=== PATIENT | male | born 1955 | race Caucasian/White ===

== ENCOUNTER 2017-08-30 20:09 | Emergency (ER) | payer OTHER ==
--- NOTE | 2017-08-30 20:43 | EDPHY ---
H & P Time Seen by Provider: 08/30/17 20:42 HPI/ROS: Chief complaint. Diarrhea HPI. Patient was seen by and not by me Smoking Status: Never smoked Constitutional: Initial Vital Signs Temperature (C) 37.1 C 08/30/17 20:15 Heart Rate 80 08/30/17 20:15 Respiratory Rate 18 08/30/17 20:15 Blood Pressure 135/97 H 08/30/17 20:15 O2 Sat (%) 80 L 08/30/17 20:15 O2 Delivery Mode Room Air Allergies/Adverse Reactions: No Known Allergies Allergy (Verified 08/30/17 20:14) Home Medications: Medication Instructions Recorded [facility] Carbonate 06/07/09 Zoloft 06/07/09 Requip 08/30/17 Seroquel 08/30/17 Wellbutrin 100mg (*) 08/30/17 Medical Decision Making - Data Points Laboratory Results: Laboratory Results 08/30/17 20:25 08/30/17 20:25 08/30/17 08/30/17 20:25 20:25 WBC 6.35 10^3/uL 10^3/uL (3.80-9.50) RBC 5.37 10^6/uL 10^6/uL (4.40-6.38) Hgb 16.7 g/dL g/dL (13.7-17.5) Hct 48.1 % % (40.0-51.0) MCV 89.6 fL fL (81.5-99.8) MCH 31.1 pg pg (27.9-34.1) MCHC 34.7 g/dL g/dL (32.4-36.7) RDW 12.6 % % (11.5-15.2) Plt Count 204 10^3/uL 10^3/uL (150-400) MPV 9.1 fL fL (8.7-11.7) Neut % (Auto) 77.2 % H % (39.3-74.2) Lymph % (Auto) 12.1 % L % (15.0-45.0) [place] % (Auto) 8.3 % % (4.5-13.0) Eos % (Auto) 1.1 % % (0.6-7.6) Baso % (Auto) 0.8 % % (0.3-1.7) Nucleat RBC Rel Count 0.0 % % (0.0-0.2) Absolute Neuts (auto) 4.90 10^3/uL 10^3/uL (1.70-6.50) Absolute Lymphs (auto) 0.77 10^3/uL L 10^3/uL (1.00-3.00) Absolute Monos (auto) 0.53 10^3/uL 10^3/uL (0.30-0.80) Absolute Eos (auto) 0.07 10^3/uL 10^3/uL (0.03-0.40) Absolute Basos (auto) 0.05 10^3/uL 10^3/uL (0.02-0.10) Absolute Nucleated RBC 0.00 10^3/uL 10^3/uL (0-0.01) Immature Gran % 0.5 % % (0.0-1.1) Immature Gran # 0.03 10^3/uL 10^3/uL (0.00-0.10) Sodium 138 mEq/L mEq/L (135-145) Potassium 3.8 mEq/L mEq/L (3.5-5.2) Chloride 104 mEq/L mEq/L (97-110) Carbon Dioxide 26 mEq/l mEq/l (22-31) Anion Gap 8 mEq/L mEq/L (8-16) BUN 11 mg/dL mg/dL (7-23) Creatinine 1.1 mg/dL mg/dL (0.7-1.3) Estimated GFR > 60 Glucose 93 mg/dL mg/dL (70-100) Calcium 9.4 mg/dL mg/dL (8.5-10.4) [place] < 0.2 mEq/L L mEq/L (0.6-1.2) Departure - Departure Condition: Good Referrals: Rony Alexander MD [Primary Care Provider] - As per Instructions
[2017-08-30] MEDS ORDERED: NS 1,000 ML IV ONE ×2 (20:45→21:17)
[2017-08-30 20:55] LABS: PLATELET COUNT 204 10^3/uL (150-400)
--- NOTE | 2017-08-30 21:06 | EDPHY ---
H & P Time Seen by Provider: 08/30/17 20:42 HPI/ROS: CHIEF COMPLAINT: Diarrhea and weakness HISTORY OF PRESENT ILLNESS: Still patient presents with symptoms since early this morning. He was in [place] visiting his 's family when he started having diarrhea early this morning. Multiple episodes not associated with melena or red blood per rectum. Symptoms severe and associated with weakness and a fever to 101 degrees F at 7:30 p.m. Tonight with chills. Decreased oral intake as he is worried that the more he takes in his stomach the more diarrhea he is going to have. REVIEW OF SYSTEMS: Eye: Some visual symptoms with extra"colors" ENT: no sore throat Cardiac: no chest pain or syncope Pulmonary: no cough or SOB Abdomen: HPI Musculoskeletal: Diffuse muscle aches Skin: no rash Neuro: no headache Constitutional: Subjective fever : no urinary symptoms A comprehensive 10 point review of systems is otherwise negative aside from elements mentioned in the history of present illness. PAST MEDICAL HISTORY: Includes mood disorder on lithium Requip Seroquel and Wellbutrin. Social history: No foreign travel, nonsmoker General Appearance: Alert and conversant, cooperative. Eyes: No scleral icterus. Pupils equal and reactive and extraocular motion intact. ENT, Mouth: Dry mucous membranes Respiratory: Normal respiratory effort, breath sounds equal, lungs are clear to auscultation. Cardiovascular: Regular rate and rhythm. Gastrointestinal: Abdomen is soft and non tender. No rebound or guarding. Neurological: Alert, face symmetric, normal motor and sensory in extremities. Skin: Warm and dry, no rashes. Musculoskeletal: No peripheral edema. Neck supple, no meningeal signs. Psychiatric: Not agitated. Emergency Department course/MDM: Family was specifically concerned about meningitis but I think that acute gastrointestinal infection is much more likely. The patient thinks he had food poisoning which I think is also quite possible. Normal saline 2 L IV, Imodium 4 mg orally. Check labs including lithium and chemistries. [id number]: feels well wants to go home. Smoking Status: Never smoked Constitutional: Initial Vital Signs Temperature (C) 37.1 C 08/30/17 20:15 Heart Rate 80 08/30/17 20:15 Respiratory Rate 18 08/30/17 20:15 Blood Pressure 135/97 H 08/30/17 20:15 O2 Sat (%) 95 08/30/17 20:15 O2 Delivery Mode Room Air Allergies/Adverse Reactions: No Known Allergies Allergy (Verified 08/30/17 20:14) Home Medications: Medication Instructions Recorded [place] Carbonate 06/07/09 Zoloft 06/07/09 Requip 08/30/17 Seroquel 08/30/17 Wellbutrin 100mg (*) 08/30/17 Medical Decision Making Differential Diagnosis: Differential for diarrhea considered including but not limited to GI bleed, gastroenteritis, infectious diarrhea, colitis, food related - Data Points Laboratory Results: Laboratory Results 08/30/17 20:25 08/30/17 20:25 08/30/17 08/30/17 20:25 20:25 WBC 6.35 10^3/uL 10^3/uL (3.80-9.50) RBC 5.37 10^6/uL 10^6/uL (4.40-6.38) Hgb 16.7 g/dL g/dL (13.7-17.5) Hct 48.1 % % (40.0-51.0) MCV 89.6 fL fL (81.5-99.8) MCH 31.1 pg pg (27.9-34.1) MCHC 34.7 g/dL g/dL (32.4-36.7) RDW 12.6 % % (11.5-15.2) Plt Count 204 10^3/uL 10^3/uL (150-400) MPV 9.1 fL fL (8.7-11.7) Neut % (Auto) 77.2 % H % (39.3-74.2) Lymph % (Auto) 12.1 % L % (15.0-45.0) [place] % (Auto) 8.3 % % (4.5-13.0) Eos % (Auto) 1.1 % % (0.6-7.6) Baso % (Auto) 0.8 % % (0.3-1.7) Nucleat RBC Rel Count 0.0 % % (0.0-0.2) Absolute Neuts (auto) 4.90 10^3/uL 10^3/uL (1.70-6.50) Absolute Lymphs (auto) 0.77 10^3/uL L 10^3/uL (1.00-3.00) Absolute Monos (auto) 0.53 10^3/uL 10^3/uL (0.30-0.80) Absolute Eos (auto) 0.07 10^3/uL 10^3/uL (0.03-0.40) Absolute Basos (auto) 0.05 10^3/uL 10^3/uL (0.02-0.10) Absolute Nucleated RBC 0.00 10^3/uL 10^3/uL (0-0.01) Immature Gran % 0.5 % % (0.0-1.1) Immature Gran # 0.03 10^3/uL 10^3/uL (0.00-0.10) Sodium 138 mEq/L mEq/L (135-145) Potassium 3.8 mEq/L mEq/L (3.5-5.2) Chloride 104 mEq/L mEq/L (97-110) Carbon Dioxide 26 mEq/l mEq/l (22-31) Anion Gap 8 mEq/L mEq/L (8-16) BUN 11 mg/dL mg/dL (7-23) Creatinine 1.1 mg/dL mg/dL (0.7-1.3) Estimated GFR > 60 Glucose 93 mg/dL mg/dL (70-100) Calcium 9.4 mg/dL mg/dL (8.5-10.4) [place] < 0.2 mEq/L L mEq/L (0.6-1.2) Medications Given: Discontinued Medications Sodium Chloride (Ns) 1,000 mls @ 0 mls/hr IV EDNOW ONE; Wide Open PRN Reason: Protocol Stop: 08/30/17 20:46 Last Admin: 08/30/17 21:09 Dose: 1,000 mls Sodium Chloride (Ns) 1,000 mls @ 0 mls/hr IV EDNOW ONE; Wide Open PRN Reason: Protocol Stop: 08/30/17 21:18 Last Admin: 08/30/17 21:26 Dose: 1,000 mls Loperamide HCl ( Imodium) 4 mg PO EDNOW ONE Stop: 08/30/17 21:18 Last Admin: 08/30/17 22:14 Dose: 4 mg Departure - Departure Disposition: Home, Routine, Self-Care Clinical Impression: Dehydration Diarrhea Qualifiers: Diarrhea type: unspecified type Qualified Code(s): R19.7 - Diarrhea, unspecified Condition: Good Instructions: Dehydration (ED), Acute Diarrhea (ED) Referrals: Rony Alexander MD [Primary Care Provider] - As per Instructions
[2017-08-30] MEDS ORDERED: LOPERAMIDE HCL 2 MG CAP PO ONE (21:17)
[2017-08-30 22:18] VITALS: BP 133/72; PULSE 75; RESP 16; TEMP 98.2; O2SAT 97
== END 2017-08-30 22:16 | disposition home or self-care (01) ==
DX: R19.7 Diarrhea, unspecified (principal); E86.0 Dehydration